=== PATIENT | female | born 1985 | race Two or more races ===

== ENCOUNTER 2024-03-05 11:20 | Outpatient (REF) | payer OTHER, SELFPAY ==
[2024-03-05] MEDS: gadobutroL 10 ML VIAL IVPUSH (12:27)
== END 2024-03-05 11:21 | disposition home or self-care (01) ==
LOC: HO.MRI 11:20
PROVIDERS: PCP Internal Medicine; Visit Provider Psychiatry & Neurology Neurology
DX: G93.40 Encephalopathy, unspecified (principal)
CPT/HCPCS: 70553; A9585